=== PATIENT | male | born 1980 | race Caucasian/White ===

== ENCOUNTER 2017-07-18 16:11 | Emergency (ER) | payer OTHER ==
[~2017-07-18] VITALS: Ht 175.3 cm; Wt 95.2 kg
[2017-07-18 16:17] VITALS: BP 116/59; PULSE 58; RESP 16; TEMP 98.1; O2SAT 99
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
[2017-07-18] MEDS ORDERED: FLUO20CA12 PO (16:37)
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
== END 2017-07-18 18:36 | disposition home or self-care (01) ==
LOC: NEPK 16:11
DX: S83.92XA Sprain of unspecified site of left knee, initial encounter (principal); V86.59XA Driver of other special all-terrain or other off-road motor vehicle injured in nontraffic accident, initial encounter
CPT/HCPCS: 73590; 99283; E0113; L1830

== ENCOUNTER → 2017-09-25 | Day surgery (SDC) | payer OTHER ==
[~2017-09-25] MED LIST: BUPIVACAINE HCL PF 0.75% 30 ML VIAL ONE; FLUO20CA12 PO; LACTATED RINGER'S 1000 ML INJ 1,000 ML ONE; LIDOCAINE 1.5%/EPINEPHrine 1:200,000 PF SOLN 30 ML AMP ONE; MIDAZOLAM HCL 5 MG/ML VIAL (1 ML) ONE; ONDANSETRON HCL 4 MG/2 ML VIAL IV PUSH ONE; PROPOFOL 500 MG/50 ML BTL IV ONE; SODIUM CHLORIDE 0.9% INJ 10 ML ONE; ceFAZolin 2 GM PREMIX 50 ML ONE; ceFAZolin INJ 1,000 MG VIAL ONE
--- NOTE | 2017-09-26 01:12 | MP ---
cc: PIOTR BURCIAGA DATE OF SURGERY 09/25/2017 PREOPERATIVE DIAGNOSIS Left knee anterior cruciate ligament tear, left knee lateral meniscus tear. POSTOPERATIVE DIAGNOSES Left knee anterior cruciate ligament tear, left knee lateral meniscus tear. PROCEDURE Left knee arthroscopic assisted anterior cruciate ligament allograft reconstruction, left knee arthroscopic partial lateral meniscectomy. SURGEON Dr. Piotr Burciaga. POLYTECHNIC TEACHER EDMOND Haskins. ANESTHESIA General with a femoral nerve block. ESTIMATED BLOOD LOSS 50 cc. TOURNIQUET TIME 0 minutes. COMPLICATIONS None. IMPLANTS USED Arthrex. DESCRIPTION This patient is a 36-year-old male who injured his left knee. He has had persistence of pain and instability in regards to his condition, failed conservative. Clinical exam as well as MRI confirmed the above-named findings. The patient counseled as to the risks, benefits, alternatives to the above named proposed surgical procedure. He did wish to proceed with surgery. PROCEDURE IN DETAIL A written consent was obtained. The patient was identified by name, taken to the operating room, placed supine on the OR table. General anesthesia was administered as well as 2 grams of IV Ancef. He did receive preoperative femoral nerve block. The left thigh carefully placed in well-padded leg loco. The left lower extremity prepped and draped using isopropyl alcohol, Hibiclens solution and DuraPrep solution. After time-out was performed a standard medial and lateral parapatellar arthroscopic portal was established. The patellofemoral joint revealed minimal grade 2 chondromalacia, medical compartment was relatively free of meniscal pathology, chondromalacia. The intercondylar notch revealed a complete disruption of anterior cruciate ligament. The lateral compartment revealed a complex tear of the posterior horn lateral meniscus as well as some grade 2 chondromalacia changes lateral femoral condyle. An arthroscopic biter followed by an arthroscopic shaver was introduced into the lateral compartment to perform a partial lateral meniscectomy. The meniscal rim was probed and noted to be stable. The shaver was used to perform a debridement of torn anterior cruciate ligament stump. An arthroscopic bur was used to perform a notchplasty. The posterior wall was well-visualized. An Arthrex retrocutting tibia guide was centered within the footprint [place] ACL and a guide pin was used to capture the 10 mm drill bit. The tibial tunnel was then retro cut 10 mm in diameter. The shaver was used to clean soft tissue and bone debris from within the knee joint. An Arthrex 7-mm [id number] medial portal femoral guide was then placed from the medial portal of the lateral femoral condyle within the [place] origin of the ACL. The knee was hyperflexed 120 degrees and a guide pin was drilled exiting superolateral aspect of the knee. Subsequently, a low-profile cannulated 10 mm drill was then drilled to a depth of 25 mm. The shaver was again used to clean soft tissue and bone debris from within the knee joint. The Beath needle was then used to shuttle #2 fiber link suture ___ initially from the medial portal and then subsequently from the tibial tunnel exiting the femoral tunnel. On the back table the geothermal hvac technician tibialis tendon allograft was thawed in antibiotic solution. Mayank Rosario, physician assistant engineer certified, was instrumental in fashioning the graft. ___ folded a diameter of 10 mm, #2 FiberWire whipstitch was placed in the proximal, distal portion of the graft. The graft pretensioned on the back table. A tight rope anchor was then placed over the midportion of the graft. The sutures from the tightrope was placed through the eyelet of the fiber link suture and pulled from the tibial tunnel exiting the femoral tunnel. The tightrope flip flip anchor was then pulled distal to the lateral cortex of the femur and then secured. This was tested manually. The graft then pulled and fully seated within the femoral tunnel. The graft was taken through a full range of motion and no evidence of pistoning or impingement. With the leg held in near full extension a guidewire was placed along the anterior border of the graft and an Arthrex 9 x 28 mm bioabsorbable Delta screw was used for interference fixation of the tibial side. An intraoperative Lauren exam was performed which was negative. The graft exiting the tibial tunnel was removed with a 10 blade scalpel. The tibial incisions closed with 3-0 Vicryl suture. Skin incisions were closed with 3-0 Prolene. Sterile dressing applied. The patient tolerated the procedure with no intraoperative complications noted. Mayank Rosario, physician assistant engineer certified, was present during the entire procedure to include patient positioning, the procedure itself. The medical necessity of physician assistant engineer was indicated in this case due to the complexity of the procedure. He assisted with appropriate manipulation of the leg and also manipulation of the camera. He assisted with fashioning and preparation of the graft and also drilling of tunnels, implantation of the graft and internal fixation devices for purpose of reconstruction. MD JESSIE Garrett/SABINE /4:33 PM /12:45 AM
== END | disposition home or self-care (01) ==
LOC: ESDC 12:46
PROVIDERS: ATTEND Orthopaedic Surgery Sports Medicine
DX: S83.512A Sprain of anterior cruciate ligament of left knee, initial encounter (principal); S83.272A Complex tear of lateral meniscus, current injury, left knee, initial encounter; M94.262 Chondromalacia, left knee
CPT/HCPCS: 01400; 01991; 29881; 29888; 64447; C1713; J0690; J2250; J2405; J7120

== ENCOUNTER 2018-11-11 12:42 | Inpatient (IN) ==
[2018-11-11] MEDS ORDERED: Sod Chloride 0.9% Inj 1,000 ML IV.SIG ONE (12:55)
--- NOTE | 2018-11-11 13:04 | ED ---
HPI General Chief Complaint: Psychiatric Symptoms Stated Complaint: Poss OD/Psych Eval Time Seen by Provider: 11/11/18 12:46 Source: EMS and police Mode of arrival: EMS Limitations: other History of Present Illness HPI Narrative: The patient is a 38-year-old male who presents to the emergency department via EMS with police after the patient was found on the bathroom floor. The patient apparently texted a friend/girlfriend earlier today that he was going to commit suicide. Patient apparently was found on the bathroom floor with needles present and heroin and crack cocaine on scene. The patient apparently was altered upon EMS arrival and was administered Narcan 4 mg intranasally by EMS and the patient awakened with subsequent nausea and vomiting. Upon arrival the patient repetitively states "I want water ", however , refuses answer any questions. The patient was placed under a [place] act by police. The patient would not answer questions in regards to overdose, timing of overdose, what medications were present, and whether the overdose was intravenous or oral. The patient will also not answer questions regards to depression, suicidal ideation, homicidal ideation, hallucination the patient is uncooperative upon arrival. No further information is obtainable from the patient. MD complaint: Reports intentional overdose Onset (ago): unknown Timing confirmed by: other Intent: unwilling to say How Overdose Was Discovered: called family/friend Treatments Prior to Arrival: narcan Related Data Home Medications Medication Instructions Recorded Confirmed Unable to Obtain Home Meds 11/11/18 11/11/18 Allergies Allergy/AdvReac Type Severity Reaction Status Date / Time No Known Allergies Allergy Uncoded 07/18/17 16:37 Review of Systems ROS Unobtainable ROS Unobtainable: other (The patient refuses to answer any questions) ROS: all other systems reviewed are negative [facility] Social History Social History Substance History: Active Abuse Smoking Status: Refused to answer How Often Do You Have a Drink Containing Alcohol: Unable to Obtain Exam Narrative Exam Narrative: GENERAL: Awake, alert, shivering 38-year-old male who appears his stated age and is in no acute respiratory distress. SKIN: Focused skin assessment warm/dry. Multiple tattoos noted. HEAD: Atraumatic. Normocephalic. EYES: Pupils equal and round. 1-2 mm bilateral. ENT: No nasal bleeding or discharge. Mucous membranes pink and moist. NECK: Trachea midline. No JVD. CARDIOVASCULAR: Regular rate and rhythm. No murmur appreciated. Heart rate in the 90s. RESPIRATORY: No accessory muscle use. Clear to auscultation. Breath sounds equal bilaterally. GASTROINTESTINAL: Abdomen soft, non-tender, nondistended. MUSCULOSKELETAL: No obvious deformities. No clubbing. No cyanosis. No edema. Patient appears to have injection vela of the extensor surface of the hands bilaterally. NEUROLOGICAL: Awake and alert. No obvious cranial nerve deficits. Motor grossly within normal limits. Normal speech. PSYCHIATRIC: Refuses to answer questions. Course Initial Documented Vital Signs Temperature 94.0 F L 11/11/18 12:50 Pulse Rate 92 H 11/11/18 12:50 Respiratory Rate 21 11/11/18 12:50 Blood Pressure 182/66 H 11/11/18 12:50 Pulse Oximetry 95 11/11/18 12:50 Last Documented Vital Signs Temperature 98.4 F 11/11/18 14:07 Pulse Rate 92 H 11/11/18 12:50 Respiratory Rate 21 11/11/18 12:50 Blood Pressure 182/66 H 11/11/18 12:50 Pulse Oximetry 95 11/11/18 12:50 Sign Out Sign Out Data: Patient Sign Out occurred on 11/11/18 at 15:24. Patient's care was discussed, and care was transferred from Lg Gould MD to Ankit Quinn. Sign Out Comment: [place] act for intentional overdose with heroin and cocaine. If laboratory evaluation is unremarkable and the patient is not hypoxic at 4 hours, patient is medically cleared to be evaluated by psychiatry. Last updated by Lg Gould MD at 11/11/18 15:02 Post-Handoff Eval: CBC shows 13,000 leukocytosis with 86% neutrophilia normal any no evidence of anemia normal platelet count Normal coagulation profile Electrolytes are relatively within normal limits potassium of 5.3 is not elevated enough to require any type of intervention at this point Creatinine 1.6 with a GFR of 49 Hypocalcemia mild 7.6 Normal magnesium Elevated AST ALT of 238 and 139 respectively but with normal bilirubin and alkaline phosphatase Total CPK 6458 Negative Tylenol negative alcohol negative salicylates Chest x-ray read by radiologist as the lungs are clear The patient will be provided with 2 liter of IV fluids, as well as provided with calcium gluconate IV and admitted to medicine for further management. Medical Decision Making MDM Narrative Medical decision making narrative: IV was established, labs are drawn and sent, and the patient was placed on cardiac telemetry monitoring and continuous pulse oximetry monitoring. EKG was ordered and interpreted. The patient was hypothermic at 94.0, was placed on warm blankets. Acetaminophen level and salicylate level were sent to lab. Chest x-ray was obtained to rule out aspiration. Psychiatric evaluation was ordered. Medical Screen Exam Complete: Yes Emergency Medical Condition: Yes Lab Data Result diagrams: 11/11/18 14:00 11/11/18 14:00 Lab Results 11/11/18 11/11/18 11/11/18 Range/Units 14:00 14:00 14:00 WBC 13.0 H (4.0-11.0) th/mm3 RBC 4.37 L (4.50-5.90) mil/mm3 Hgb 15.5 (13.0-17.0) gm/dL Hct 43.4 (39.0-51.0) % MCV 99.2 (80.0-100.0) fL MCH 35.4 H (27.0-34.0) pg MCHC 35.7 (32.0-36.0) % RDW 12.7 (11.6-17.2) % Plt Count 142 L (150-450) th/mm3 MPV 8.6 (7.0-11.0) fL Neut % (Auto) 85.8 H (16.0-70.0) % Lymph % (Auto) 3.6 L (9.0-44.0) % [place] % (Auto) 10.5 H (0.0-8.0) % Eos % (Auto) 0.0 (0.0-4.0) % Baso % (Auto) 0.1 (0.0-2.0) % Neut # (Auto) 11.1 H (1.8-7.7) th/mm3 Lymph # (Auto) 0.5 L (1.0-4.8) th/mm3 [place] # (Auto) 1.4 H (0.0-0.9) th/mm3 Eos # (Auto) 0.0 (0.0-0.4) th/mm3 Baso # (Auto) 0.0 (0.0-0.2) th/mm3 WBC Differential . Differential Comment Auto diff final PT 12.3 H (9.8-11.6) sec INR 1.2 Ratio Sodium 138 (136-145) meq/L Potassium 5.3 H (3.5-5.1) meq/L Chloride 98 (98-107) meq/L Carbon Dioxide 26.9 (21.0-32.0) meq/L Anion Gap 13 (5-15) meq/L BUN 36 H (7-18) mg/dL Creatinine 1.60 H (0.60-1.30) mg/dL Estimated GFR 49 L (>89) mL/min Random Glucose 137 H (74-106) mg/dL Calcium 7.4 L* (8.5-10.1) mg/dL Calcium Adj for Albumin 7.6 L (8.5-10.1) mg/dL Magnesium (1.5-2.5) mg/dL Total Bilirubin 0.4 (0.2-1.0) mg/dL AST 238 H (15-37) U/L ALT 139 H (12-78) U/L Alkaline Phosphatase 74 (45-117) U/L Total Creatine Kinase 6458 H (39-308) U/L CK-MB (CK-2) 38.9 H (0.5-3.6) ng/mL CK-MB (CK-2) % 0.6 (0.0-4.0) % Total Protein 6.9 (6.4-8.2) g/dL Albumin 3.7 (3.4-5.0) g/dL Salicylates (2.8-20.0) mg/dL Acetaminophen Less than 2.0 L (10.0-30.0) mcg/mL Serum Alcohol Less than 3 (0-5) mg/dL 11/11/18 11/11/18 Range/Units 14:00 14:00 WBC (4.0-11.0) th/mm3 RBC (4.50-5.90) mil/mm3 Hgb (13.0-17.0) gm/dL Hct (39.0-51.0) % MCV (80.0-100.0) fL MCH (27.0-34.0) pg MCHC (32.0-36.0) % RDW (11.6-17.2) % Plt Count (150-450) th/mm3 MPV (7.0-11.0) fL Neut % (Auto) (16.0-70.0) % Lymph % (Auto) (9.0-44.0) % [place] % (Auto) (0.0-8.0) % Eos % (Auto) (0.0-4.0) % Baso % (Auto) (0.0-2.0) % Neut # (Auto) (1.8-7.7) th/mm3 Lymph # (Auto) (1.0-4.8) th/mm3 [place] # (Auto) (0.0-0.9) th/mm3 Eos # (Auto) (0.0-0.4) th/mm3 Baso # (Auto) (0.0-0.2) th/mm3 WBC Differential Differential Comment PT (9.8-11.6) sec INR Ratio Sodium (136-145) meq/L Potassium (3.5-5.1) meq/L Chloride (98-107) meq/L Carbon Dioxide (21.0-32.0) meq/L Anion Gap (5-15) meq/L BUN (7-18) mg/dL Creatinine (0.60-1.30) mg/dL Estimated GFR (>89) mL/min Random Glucose (74-106) mg/dL Calcium (8.5-10.1) mg/dL Calcium Adj for Albumin (8.5-10.1) mg/dL Magnesium 2.3 (1.5-2.5) mg/dL Total Bilirubin (0.2-1.0) mg/dL AST (15-37) U/L ALT (12-78) U/L Alkaline Phosphatase (45-117) U/L Total Creatine Kinase (39-308) U/L CK-MB (CK-2) (0.5-3.6) ng/mL CK-MB (CK-2) % (0.0-4.0) % Total Protein (6.4-8.2) g/dL Albumin (3.4-5.0) g/dL Salicylates 3.7 (2.8-20.0) mg/dL Acetaminophen (10.0-30.0) mcg/mL Serum Alcohol (0-5) mg/dL Imaging Data Radiologist's impression: Chest X-Ray 11/11/18 12:55 CONCLUSION: The lungs are clear. ECG Data EKG Prior to Arrival: No Attestation: I personally reviewed and interpreted this ECG as follows: Interpretation: EKG reveals normal sinus rhythm with a rate 80. Nonspecific T wave changes. Wavy baseline. Discharge Plan Discharge Disposition Patient Disposition: ED Admit(ED Internal Use Only) Discharge Condition Condition: Stable Discharge Details Diagnosis: Suicidal ideation, Rhabdomyolysis, Acute renal failure Physicians Team ED Provider: Ankit Quinn Primary Care Provider: UNKNOWN, Rxs /Orders / Referrals /Forms Prescriptions: No Action Unable to Obtain Home Meds RF: 0 Discharge Interventions Interventions: Vital Signs Last Done: 11/11/18 14:07 Status ED Status: With Doctor
--- NOTE | 2018-11-11 14:00 | XR ---
EXAM DATE: 11/11/2018 1:53 PM EST AGE/SEX: 38 years / Male INDICATIONS: Short of breath. CLINICAL DATA: This is the patient's initial encounter. Patient reports that signs and symptoms have been present for 1 day and indicates a pain score of Nonresponsive. MEDICAL/SURGICAL HISTORY: Non-responsive. Non-responsive. COMPARISON: No prior exams available for comparison. FINDINGS: A single AP view of the chest demonstrates the lungs to be symmetrically aerated without evidence of mass, infiltrate or effusion. The cardiomediastinal contours are unremarkable. Osseous structures a re intact. CONCLUSION: The lungs are clear. Electronically signed by: Sanchez Farley MD Board Certified Radiologist 11/11/2018 1:58 PM EST
--- NOTE | 2018-11-11 15:05 | ECG ---
Date Performed: 11/11/2018 Time Performed: 13:16:23 PTAGE: 38 years EKG: Baseline artifact present Sinus rhythm POSSIBLE RIGHT VENTRICULAR CONDUCTION DELAY NONSPECIFIC T-WAVE ABNORMALITY BORDERLINE ECG Compared t o prior electrocardiogram, Nonspecific ST depressions have resolved. PREVIOUS TRACING : 12/11/1998 03.08 DOCTOR: Levi Malagon Interpretating Date/Time 11/11/2018 15:05:18
[2018-11-11 15:11] LABS: Baso % (Auto) 0.1 % (0.0-2.0); Hematocrit 43.4 % (39.0-51.0); Hemoglobin 15.5 gm/dL (13.0-17.0); Lymph # (Auto) 0.5 th/mm3 (1.0-4.8); Lymph % (Auto) 3.6 % (9.0-44.0); Mean Corpuscular HGB Conc 35.7 % (32.0-36.0); Mean Corpuscular Hemoglobin 35.4 pg (27.0-34.0); Mean Corpuscular Volume 99.2 fL (80.0-100.0); Mean Platelet Volume 8.6 fL (7.0-11.0); Mono # (Auto) 1.4 th/mm3 (0.0-0.9); Mono % (Auto) 10.5 % (0.0-8.0); Neut # (Auto) 11.1 th/mm3 (1.8-7.7); Neut % (Auto) 85.8 % (16.0-70.0); Platelet Count 142 th/mm3 (150-450); Red Blood Count 4.37 mil/mm3 (4.50-5.90); Red Cell Distribution Width 12.7 % (11.6-17.2)
[2018-11-11 15:32] LABS: Albumin 3.7 g/dL (3.4-5.0); Anion Gap 13 meq/L (5-15); Aspartate Aminotransferase 238 U/L (15-37); Blood Urea Nitrogen 36 mg/dL (7-18); Calcium 7.4 mg/dL (8.5-10.1); Carbon Dioxide 26.9 meq/L (21.0-32.0); Chloride 98 meq/L (98-107); Glomerular Filtration Rate 49 mL/min (>89); Glucose,Random 137 mg/dL (74-106); Potassium 5.3 meq/L (3.5-5.1); Sodium 138 meq/L (136-145)
[2018-11-11 15:36] LABS: INR 1.2 Ratio; Prothrombin Time 12.3 sec (9.8-11.6)
[2018-11-11 15:57] LABS: Alanine Aminotransferase 139 U/L (12-78); Alkaline Phosphatase 74 U/L (45-117); Creatine Kinase 6458 U/L (39-308); Total Protein 6.9 g/dL (6.4-8.2)
[2018-11-11 16:16] LABS: CKMB Percent 0.6 % (0.0-4.0); Creatine Kinase MB 38.9 ng/mL (0.5-3.6)
[2018-11-11] MEDS ORDERED: Calcium Gluconate Inj 1 GM in Dextrose 5% in Water Inj 100 ML IV.SIG ONE ×2 (16:31)
[2018-11-11] MEDS ORDERED: Acetaminophen 325 MG Tablet PO PRN (16:56)
--- NOTE | 2018-11-11 17:05 | P.HPIM ---
History of Present Illness Primary Care Physician: UNKNOWN Chief Complaint: Suicidal History of Present Illness: Mr. Saez is a 38-year-old male. He is brought in by the police today after being found on his bathroom floor. Patient reportedly texted his girlfriend earlier today informing her that he was going to commit suicide. He was found with needles on his bathroom floor unconscious with heroin and crack cocaine on the scene. Narcan was administered in the field and the patient became responsive and expressed thirst. Patient has been placed under Sahu act by the police. Thus far he has not been cooperative with answering questions. He will not provide an interview with me. Review of Systems ROS Unobtainable: unobtainable due to mental condition and unobtainable due to mental status PMFSH Social History Social History Substance History: Active Abuse Smoking Status: Refused to answer How Often Do You Have a Drink Containing Alcohol: Unable to Obtain Immunization History Tetanus Immunization: Unable to Assess Medications and Allergies Allergies Allergy/AdvReac Type Severity Reaction Status Date / Time No Known Allergies Allergy Uncoded 07/18/17 16:37 Home Medications Medication Instructions Recorded Confirmed Type Unable to Obtain Home Meds 11/11/18 11/11/18 History Active Medications: Active Medications Acetaminophen (Tylenol) 650 mg PO Q4H PRN PRN Reason: Temp > 100.4 Al Hydroxide/Mg Hydroxide (Milk Of Loc Liq) 30 ml PO Q12H PRN PRN Reason: Mild Constipation Sodium Chloride (Ns Inj) 1,000 mls @ 2,000 mls/hr IV.SIG Q30M [facility] Stop: 11/11/18 17:44 Calcium Gluconate 1 gm/ (Dextrose) 110 mls @ 110 mls/hr IV.SIG ONCE ONE Stop: 11/11/18 17:30 Sodium Chloride (Ns Inj) 1,000 mls @ 100 mls/hr IV.CONT .Q10H [facility] Ondansetron HCl (Zofran Inj) 4 mg IV.PUSH Q6H PRN PRN Reason: NAUSEA OR VOMITING Sodium Chloride (Ns Flush) 2 ml IV.FLUSH PRN PRN PRN Reason: FLUSH AFTER USING IV ACCESS Sodium Chloride (Ns Flush) 2 ml IV.FLUSH BID KRISTYN Sodium Chloride (Ns Flush) 2 ml IV.FLUSH PRN PRN PRN Reason: FLUSH AFTER USING IV ACCESS Physical Exam Vital signs: Vital Signs 11/11/18 12:50 11/11/18 14:07 Temperature 94.0 F L 98.4 F Pulse Rate 92 H Respiratory Rate 21 Blood Pressure 182/66 H Pulse Oximetry 95 Intake & Output 11/10/18 11/11/18 11/11/18 18:59 06:59 18:59 Intake Total 1000 / 1000 Balance 1000 / 1000 Weight 74.843 kg Intake: IV 1000 / 1000 NS Inj 1,000 ML @ Wide Open IV. 1000 / 1000 SIG BOLUS ONE Rx#:[id number] Narrative: GENERAL: NAD, A&Ox3 HEAD: Normocephalic. NECK: Supple, trachea midline. No lymphadenopathy. EYES: No scleral icterus. No injection or drainage. CARDIOVASCULAR: Regular rate and rhythm without murmurs, gallops, or rubs. RESPIRATORY: Breath sounds equal bilaterally. No accessory muscle use. GASTROINTESTINAL: Abdomen soft, non-tender, nondistended. MUSCULOSKELETAL: No cyanosis, or edema. SKIN: Warm and dry. NEURO: No focal neurological deficits. Results Labs CBC & Chem 7: 11/11/18 14:00 11/11/18 14:00 Imaging Impressions Chest X-Ray 11/11/18 12:55 CONCLUSION: The lungs are clear. Caprini VTE Risk Assessment Caprini VTE Risk Assessment: No/Low Risk (score <= 1) Caprini Risk Assessment Model: Point Value = 1 Point Value = 2 Point Value = 3 Point Value = 5 Age 41-60 Minor surgery BMI > 25 kg/m2 Swollen legs Varicose veins or History of unexplained or recurrent spontaneous Oral contraceptives or hormone replacement Sepsis (< 1 month) Serious lung disease, including pneumonia (< 1 month) Abnormal pulmonary function Acute myocardial infarction Congestive heart failure (< 1 month) History of inflammatory bowel disease Medical patient at bed rest Age 61-74 Arthroscopic surgery Major open surgery (> 45 min) Laparoscopic surgery (> 45 min) Malignancy Confined to bed (> 72 hours) Immobilizing plaster cast Central venous access Age >= 75 History of VTE Family history of VTE Factor V Leiden Prothrombin [id number] Lupus anticoagulant Anticardiolipin antibodies Elevated serum homocysteine Heparin-induced thrombocytopenia Other congenital or acquired thrombophilia Stroke (< 1 month) Elective arthroplasty Hip, pelvis, or leg fracture Acute spinal cord injury (< 1 month) Prophylaxis Regimen: Total Risk Factor Score Risk Level Prophylaxis Regimen 0-1 Low Early ambulation 2 Moderate Order ONE of the following: *Sequential Compression Device (SCD) *Heparin 5000 units SQ BID 3-4 Higher Order ONE of the following medications: *Heparin 5000 units SQ TID *Enoxaparin/Lovenox 40 mg SQ daily (WT < 150 kg, CrCl > 30 mL/min) *Enoxaparin/Lovenox 30 mg SQ daily (WT < 150 kg, CrCl > 10-29 mL/min) *Enoxaparin/Lovenox 30 mg SQ BID (WT < 150 kg, CrCl > 30 mL/min) AND/OR *Sequential Compression Device (SCD) 5 or more Highest Order ONE of the following medications: *Heparin 5000 units SQ TID (Preferred with Epidurals) *Enoxaparin/Lovenox 40 mg SQ daily (WT < 150 kg, CrCl > 30 mL/min) *Enoxaparin/Lovenox 30 mg SQ daily (WT < 150 kg, CrCl > 10-29 mL/min) *Enoxaparin/Lovenox 30 mg SQ BID (WT < 150 kg, CrCl > 30 mL/min) AND *Sequential Compression Device (SCD) Assessment and Plan Plan 38-year-old male admitted secondary to acute kidney injury, rhabdomyolysis, and heroin/cocaine overdose. Patient under Sahu act for suicidal ideations and attempt. Acute kidney injury Rhabdomyolysis Hyperkalemia Etiology may be related to dehydration from lack of fluid intake when patient was abusing drugs IV hydration Repeat labs in a.m. Polysubstance abuse Transaminitis Patient counseled to avoid abusing drugs Follow LFTs Suicidal ideations Suicide attempt Patient under Sahu act Psychiatry consulted Patient to be supervised DVT prophylaxis SCDs
[2018-11-11] MEDS: Sod Chloride 0.9% Inj 1,000 ML IV.SIG SCH ×2 (18:50→18:56)
[2018-11-11] MEDS: Sod Chloride 0.9% Inj 1,000 ML IV.CONT SCH (22:59)
[2018-11-12 02:08] LABS: Amphetamine Screen,Urine Neg (Neg); Barbiturate Screen,Urine Neg (Neg); Cannabinoid Screen,Urine Neg (Neg); Cocaine Screen,Urine Pos (Neg)
[2018-11-12 02:14] LABS: Opiate Screen,Urine Pos (Neg)
[2018-11-12] MEDS: Sod Chloride 0.9% Inj 1,000 ML IV.CONT SCH ×3 (02:19→20:49)
[2018-11-12 05:03] LABS: Baso % (Auto) 0.2 % (0.0-2.0); Hematocrit 40.2 % (39.0-51.0); Hemoglobin 14.1 gm/dL (13.0-17.0); Lymph # (Auto) 1.3 th/mm3 (1.0-4.8); Lymph % (Auto) 12.7 % (9.0-44.0); Mean Corpuscular Hemoglobin 34.6 pg (27.0-34.0); Mean Corpuscular Volume 98.8 fL (80.0-100.0); Mean Platelet Volume 8.7 fL (7.0-11.0); Mono # (Auto) 0.7 th/mm3 (0.0-0.9); Mono % (Auto) 7.3 % (0.0-8.0); Neut # (Auto) 8.2 th/mm3 (1.8-7.7); Neut % (Auto) 79.8 % (16.0-70.0); Platelet Count 129 th/mm3 (150-450); Red Blood Count 4.07 mil/mm3 (4.50-5.90); Red Cell Distribution Width 12.6 % (11.6-17.2); White Blood Count 10.3 th/mm3 (4.0-11.0)
[2018-11-12 05:55] LABS: Alanine Aminotransferase 167 U/L (12-78); Albumin 3.1 g/dL (3.4-5.0); Alkaline Phosphatase 55 U/L (45-117); Anion Gap 8 meq/L (5-15); Aspartate Aminotransferase 485 U/L (15-37); Blood Urea Nitrogen 27 mg/dL (7-18); Calcium 7.6 mg/dL (8.5-10.1); Carbon Dioxide 26.7 meq/L (21.0-32.0); Chloride 107 meq/L (98-107); Creatine Kinase 13878 U/L (39-308); Glomerular Filtration Rate 80 mL/min (>89); Glucose,Random 86 mg/dL (74-106); Potassium 4.6 meq/L (3.5-5.1); Sodium 142 meq/L (136-145); Total Protein 5.8 g/dL (6.4-8.2)
[2018-11-12 06:23] LABS: CKMB Percent 0.6 % (0.0-4.0); Creatine Kinase MB 84.3 ng/mL (0.5-3.6)
--- NOTE | 2018-11-12 11:20 | P.CONPSY ---
Provisional Diagnosis Admission Date: November 12, 2018 09:18 [place] I.: Adjustment disorder with depressed mood vs major depressive disorder vs substance-induced mood disorder, polysubstance dependence including alcohol, cocaine, opiate History of Present Illness Service: ER Primary Care Provider: UNKNOWN Chief Complaint: Suicidal History of Present Illness: The patient is a 38-year-old man, domiciled in [place] alone, , father of 2 kids, unemployed at the moment, with a psychiatric history of OCD, FLORENTINO, polysubstance dependence including cocaine, alcohol and heroin, no psychiatric hospitalizations, he is not in psychotropics, one suicidal attempt at the age of [age] years old by overdosing, no significant medical history, who was brought in by the police today after being found on his bathroom floor. Patient reportedly texted his girlfriend earlier today informing her that he was going to commit suicide. He was found with needles on his bathroom floor unconscious with heroin and crack cocaine on the scene. Narcan was administered in the field and the patient became responsive and expressed thirst. Patient has been placed under Sahu act by the police. Thus far he has not been cooperative with answering questions. He was initially no provide any information interview with ER doctors. He was placed in one-to-one for safety. Consulted to psychiatry to address suicidal attempt. Chart reviewed. On my psychiatric evaluation today the patient continues to be oppositional, quite irritable, internally preoccupied. The patient says that he is very upset that he is still alive. He says that he feels that his privacy is violated I should be now, and he is very upset because the police arrived in his house and did not allow him to . The patient refuses to elaborate about emotions and feelings behind his desire to . He does tell me that is done with his life and this is what everybody wants. He tells me that he used to be a heroine, cocaine and alcohol user in the past, he was sober for many months, but he has relapse using these substances in the last weeks due to the stress of her life. He recently lost his job. He is also having permanent problem with his ex-. Refuses to cooperate with cognitive questions. Unable to contract for safety in the hospital. PPHx: OCD, FLORENTINO, no previous psychiatric hospitalizations, one suicidal attempt at the age of 18 by overdose PMHx: No medical history Family Hx: No family psychiatric history Substance Hx: Patient reports recent use of heroine, cocaine, alcohol, he claims that he has just recently relapsed weeks ago after years without using. Social Hx: The patient was born and raised in [place], he is , domiciled in [place] alone, , father of 2 kids, 15, 13, unemployed, his highest level of education is some color Review of Systems All other systems reviewed negative except as stated in HPI PMFSH - History History Provided By: Patient, Pool Servicer / EMT, Law Enforcement - Family History Family History: Family History (Last Reviewed 11/11/18 @ 13:02 by Lg Gould MD) Other Osteoarthritis - Tobacco History Second Hand Smoke Exposure: Yes Smoking Status: Refused to answer - Alcohol History How Often Do You Have a Drink Containing Alcohol: Unable to Obtain - Substance Use History Substance History: Active Abuse - Immunization History Tetanus Immunization: Unable to Assess Medications and Allergies Active Medications: Active Medications Acetaminophen (Tylenol) 650 mg PO Q4H PRN PRN Reason: Temp > 100.4 Al Hydroxide/Mg Hydroxide (Milk Of Loc Liq) 30 ml PO Q12H PRN PRN Reason: Mild Constipation Sodium Chloride (Ns Inj) 1,000 mls @ 100 mls/hr IV.CONT .Q10H [facility] Last Infusion: 11/12/18 07:29 Dose: 100 mls/hr Ondansetron HCl (Zofran Inj) 4 mg IV.PUSH Q6H PRN PRN Reason: NAUSEA OR VOMITING Sodium Chloride (Ns Flush) 2 ml IV.FLUSH BID [facility] Last Admin: 11/12/18 08:35 Dose: Not Given Sodium Chloride (Ns Flush) 2 ml IV.FLUSH PRN PRN PRN Reason: FLUSH AFTER USING IV ACCESS Allergies Allergy/AdvReac Type Severity Reaction Status Date / Time No Known Allergies Allergy Uncoded 07/18/17 16:37 Home Medications Medication Instructions Recorded Confirmed Type Unable to Obtain Home Meds 11/11/18 11/11/18 History Exam Vital signs: Vital Signs 11/11/18 12:50 11/11/18 14:07 11/11/18 18:37 Temperature 94.0 F L 98.4 F Pulse Rate 92 H 82 Respiratory Rate 21 13 Blood Pressure 182/66 H 105/61 Pulse Oximetry 95 94 L 11/11/18 19:06 11/11/18 20:00 11/11/18 21:36 Temperature 98.8 F Pulse Rate 91 H Respiratory Rate 18 16 Blood Pressure 84/47 L Pulse Oximetry 93 L 11/11/18 23:40 11/12/18 04:00 11/12/18 08:51 Temperature 99.2 F 98.9 F 98.8 F Pulse Rate 58 L 98 H 100 H Respiratory Rate 18 16 14 Blood Pressure 93/58 L 84/39 L 103/53 L Pulse Oximetry 92 L 93 L 90 L Intake & Output 11/11/18 11/12/18 11/12/18 18:59 06:59 18:59 Intake Total 1999 1110 / 1110 Output Total 950 / 950 Balance 1999 160 / 160 Weight 74.843 kg 74.6 kg Intake: IV 1999 1110 / 1110 Calcium Gluconate Inj 1 GM In 110 / 110 D5W Inj 100 ML @ 110 mls/hr IV. SIG ONCE ONE Rx#:[id number] NS Inj 1,000 ML @ 2000 mls/hr 1999 1000 / 1000 IV.SIG Q30M KRISTYN Rx#:[id number] Output: Urine 950 / 950 Other: Weight On Admission 74.6 kg Narrative: No tremors, no EPS, no psychomotor agitation or retardation, no withdrawal symptoms, - Constitutional moderate distress - Routine HEENT Exam Head: Present: normocephalic, atraumatic Eye: Present: EOMI ENT: Present: mucous membranes moist Mental Status Examination Appearance: Appropriate Consciousness: Alert Orientation: x4 Motor Activity: Normal gait Speech: Unremarkable Language: Adequate Fund of Knowledge: Adequate Attention and Concentration: Adequate Memory: Unremarkable Mood: Angry Affect: Irritable, Sad Thought Process & Associations: Intact Thought Content: Appropriate Hallucination Type: None Suicidal Ideation: Yes Suicidal Plan: Yes Suicidal Intention: No Homicidal Ideation: No Homicidal Plan: No Homicidal Intention: No Insight: Poor Judgment: Poor Assessment and Plan - Assessment (1) Adjustment disorder Code(s): F43.20 - Adjustment disorder, unspecified Status: Acute (2) Polysubstance dependence Code(s): F19.20 - Other psychoactive substance dependence, uncomplicated Status: Acute - Plan Plan: On psychiatric evaluation the patient is irritable, oppositional, resistant, guarded, refusing to provide information about the recent for his suicidal attempt by overdosing. But stating that he regrets to be alive and he is upset because his suicidal attempt was aborted by the police. Patient states that I should be , that is what everybody wants". He seems to be quite distressed and emotionally disturbed. He reports that he has a psychiatric history of FLORENTINO , OCD, but no previous psychiatric hospitalizations, one previous suicide attempt at the age of 18 by overdosing, polysubstance dependence including alcohol, cocaine and heroin. Patient is unable to contract for safety. He continues to have suicidal ideas. The patient needs psychiatric admission for for stabilization and safety. Continue one-to-one the medical floor for safety. Will start CIWA for potential alcohol withdrawal. Transfer to psychiatry once medically stable. Justification for Continued Inpatient Stay: For psychiatric admission for stabilization and safety. (1) Adjustment disorder Qualifiers: Adjustment disorder type: with depressed mood Qualified Code(s): F43.21 - Adjustment disorder with depressed mood
--- NOTE | 2018-11-12 11:38 | P.PNIM ---
Subjective Interval history: No acute distress today. Patient sleeping most of the day. He is able to wake up and has been cooperating today. He complains of no pain. Creatine kinase levels have increased, not yet stable for discharge. Physical Exam Vital signs: Vital Signs 11/11/18 12:50 11/11/18 14:07 11/11/18 18:37 Temperature 94.0 F L 98.4 F Pulse Rate 92 H 82 Respiratory Rate 21 13 Blood Pressure 182/66 H 105/61 Pulse Oximetry 95 94 L 11/11/18 19:06 11/11/18 20:00 11/11/18 21:36 Temperature 98.8 F Pulse Rate 91 H Respiratory Rate 18 16 Blood Pressure 84/47 L Pulse Oximetry 93 L 11/11/18 23:40 11/12/18 04:00 11/12/18 08:51 Temperature 99.2 F 98.9 F 98.8 F Pulse Rate 58 L 98 H 100 H Respiratory Rate 18 16 14 Blood Pressure 93/58 L 84/39 L 103/53 L Pulse Oximetry 92 L 93 L 90 L Intake & Output 11/11/18 11/12/18 11/12/18 18:59 06:59 18:59 Intake Total 1999 1110 / 1110 Output Total 950 / 950 Balance 1999 160 / 160 Weight 74.843 kg 74.6 kg Intake: IV 1999 1110 / 1110 Calcium Gluconate Inj 1 GM In 110 / 110 D5W Inj 100 ML @ 110 mls/hr IV. SIG ONCE ONE Rx#:[id number] NS Inj 1,000 ML @ 2000 mls/hr 1999 1000 / 1000 IV.SIG Q30M KRISTYN Rx#:[id number] Output: Urine 950 / 950 Other: Weight On Admission 74.6 kg Narrative: GENERAL: NAD, A&Ox3 HEAD: Normocephalic. NECK: Supple, trachea midline. No lymphadenopathy. EYES: No scleral icterus. No injection or drainage. CARDIOVASCULAR: Regular rate and rhythm without murmurs, gallops, or rubs. RESPIRATORY: Breath sounds equal bilaterally. No accessory muscle use. GASTROINTESTINAL: Abdomen soft, non-tender, nondistended. MUSCULOSKELETAL: No cyanosis, or edema. SKIN: Warm and dry. NEURO: No focal neurological deficits. Results Labs CBC & Chem 7: 11/12/18 04:08 11/12/18 04:06 Imaging Imaging: Impressions Chest X-Ray 11/11/18 12:55 CONCLUSION: The lungs are clear. Assessment and Plan (1) Adjustment disorder: Code(s): F43.20 - Adjustment disorder, unspecified Status: Acute (2) Polysubstance dependence: Code(s): F19.20 - Other psychoactive substance dependence, uncomplicated Status: Acute Plan 38-year-old male admitted secondary to acute kidney injury, rhabdomyolysis, and heroin/cocaine overdose. Patient under Sahu act for suicidal ideations and attempt. Creatine kinase levels have increased today. Continue IV hydration. Continue monitoring renal function. Continue monitoring creatine kinase. Patient can be medically cleared after rhabdomyolysis improves. Acute kidney injury Rhabdomyolysis Hyperkalemia Etiology may be related to dehydration from lack of fluid intake when patient was abusing drugs IV hydration Repeat labs in a.m. Polysubstance abuse Transaminitis Patient counseled to avoid abusing drugs Follow LFTs Suicidal ideations Suicide attempt Patient under Sahu act Transition to psychiatry care after patient medically stable and clear. Psychiatry consulted Patient to be supervised DVT prophylaxis SCDs Progress Note: Quality VTE Deep Vein Thrombosis/Pulmonary Embolism Present on Admission: No _ (1) Adjustment disorder Qualifiers: Adjustment disorder type: with depressed mood Qualified Code(s): F43.21 - Adjustment disorder with depressed mood
[2018-11-13] MEDS: Sod Chloride 0.9% Inj 1,000 ML IV.CONT SCH ×2 (00:10→10:35)
[2018-11-13 07:18] LABS: Baso % (Auto) 0.3 % (0.0-2.0); Eos % (Auto) 0.2 % (0.0-4.0); Hematocrit 40.8 % (39.0-51.0); Lymph % (Auto) 24.4 % (9.0-44.0); Mean Corpuscular HGB Conc 34.3 % (32.0-36.0); Mean Corpuscular Hemoglobin 33.9 pg (27.0-34.0); Mean Corpuscular Volume 98.9 fL (80.0-100.0); Mean Platelet Volume 8.8 fL (7.0-11.0); Mono # (Auto) 0.6 th/mm3 (0.0-0.9); Mono % (Auto) 6.9 % (0.0-8.0); Neut # (Auto) 5.5 th/mm3 (1.8-7.7); Neut % (Auto) 68.2 % (16.0-70.0); Platelet Count 125 th/mm3 (150-450); Red Blood Count 4.12 mil/mm3 (4.50-5.90); Red Cell Distribution Width 12.9 % (11.6-17.2); White Blood Count 8.1 th/mm3 (4.0-11.0)
[2018-11-13 07:54] LABS: Alanine Aminotransferase 151 U/L (12-78); Albumin 2.8 g/dL (3.4-5.0); Anion Gap 6 meq/L (5-15); Aspartate Aminotransferase 349 U/L (15-37); Blood Urea Nitrogen 17 mg/dL (7-18); Calcium 7.7 mg/dL (8.5-10.1); Carbon Dioxide 27.4 meq/L (21.0-32.0); Chloride 108 meq/L (98-107); Glomerular Filtration Rate Greater Than 89 mL/min (>89); Glucose,Random 83 mg/dL (74-106); Potassium 4.1 meq/L (3.5-5.1); Sodium 141 meq/L (136-145)
[2018-11-13 08:22] LABS: Alkaline Phosphatase 55 U/L (45-117); Creatine Kinase 7411 U/L (39-308); Total Protein 5.5 g/dL (6.4-8.2)
[2018-11-13 08:32] VITALS: BP 112/67; PULSE 51; RESP 20; TEMP 98.6; O2SAT 96
[2018-11-13 08:42] LABS: CKMB Percent 0.2 % (0.0-4.0); Creatine Kinase MB 14.1 ng/mL (0.5-3.6)
--- NOTE | 2018-11-13 10:03 | P.DS ---
DS: Providers Date of admission: 11/12/18 09:18 Primary care physician: UNKNOWN Consults: 11/11/18 17:06 Consult to Psychiatry Routine Consulting Provider: Liam Parekh Reason for Consultation: Suicidal Ideations and Attempt, under Sahu Act. Spoke with:: DONNA Date Notified:: 11/11/18 Time Notified:: 18:50 Ordering Provider: BLU Brief History from admission: Mr. Saez is a 38-year-old male. He is brought in by the police today after being found on his bathroom floor. Patient reportedly texted his girlfriend earlier today informing her that he was going to commit suicide. He was found with needles on his bathroom floor unconscious with heroin and crack cocaine on the scene. Narcan was administered in the field and the patient became responsive and expressed thirst. Patient has been placed under Sahu act by the police. Thus far he has not been cooperative with answering questions. He will not provide an interview with me. DS: Diagnosis Discharge Diagnosis (1) Adjustment disorder: Status: Acute (2) Polysubstance dependence: Status: Acute DS: Summary Mr. Saez is a 38-year-old male. He was admitted secondary to suicidal ideations/attempt with overdose of cocaine and heroin. He was found to have rhabdomyolysis with acute kidney injury. Hydration has been provided. At the 24-hour marlyn he had worsening of his rhabdomyolysis. With further hydration the patient has evidence of progressive resolution of his rhabdomyolysis. Renal function has returned to normal. Patient's mental state has returned to baseline. He is medically stable for discharge today. He will discharge to psychiatry care for further psychiatric treatment. Time Spent with Patient Total time spent providing and/or coordinating discharge services: Less than 30 minutes Quality: VTE Deep Vein Thrombosis/Pulmonary Embolism Present on Admission: No Results Labs on day of discharge: Labs from last 24 hours 11/13/18 11/13/18 06:12 06:12 WBC 8.1 RBC 4.12 L Hgb 14.0 Hct 40.8 MCV 98.9 MCH 33.9 MCHC 34.3 RDW 12.9 Plt Count 125 L MPV 8.8 Neut % (Auto) 68.2 Lymph % (Auto) 24.4 Howard % (Auto) 6.9 Eos % (Auto) 0.2 Baso % (Auto) 0.3 Neut # (Auto) 5.5 Lymph # (Auto) 2.0 Howard # (Auto) 0.6 Eos # (Auto) 0.0 Baso # (Auto) 0.0 WBC Differential . Differential Comment Auto diff final Sodium 141 Potassium 4.1 Chloride 108 H Carbon Dioxide 27.4 Anion Gap 6 BUN 17 Creatinine 0.88 Estimated GFR Greater than 89 Random Glucose 83 Calcium 7.7 L Total Bilirubin 0.3 AST 349 H ALT 151 H Alkaline Phosphatase 55 Total Creatine Kinase 7411 H CK-MB (CK-2) 14.1 H CK-MB (CK-2) % 0.2 Total Protein 5.5 L Albumin 2.8 L Impressions ITS Impressions Chest X-Ray 11/11/18 12:55 CONCLUSION: The lungs are clear. Discharge Plan Discharge Disposition Patient Disposition: [facility] Disc To [facility] Discharge Condition Condition: Stable Discharge Order Discharge Orders: Discharge Order (Routine); Ordered 11/13/18 Ordered By: Surendra Quesada Discharge Details Anticipated Discharge Date: 11/13/18 Physicians Team Primary Care Provider: UNKNOWN, Attending Provider: Surendra Quesada Other Providers: Liam Parekh Rxs /Orders / Referrals /Forms Prescriptions: Continue Unable to Obtain Home Meds RF: 0 Referrals: UNKNOWN, [Primary Care Provider] - See Instructions Status ED Status: Left Department
== END 2018-11-13 11:07 | DRG 918 ==
LOC: NEDH 12:42 → NEPE 12:42 → NEPFCDU 18:48
PROVIDERS: ADMIT Hospitalist; ATTEND Hospitalist
DX: F43.20 Adjustment disorder, unspecified; F19.20 Other psychoactive substance dependence, uncomplicated; T40.5X2A Poisoning by cocaine, intentional self-harm, initial encounter; T40.1X2A Poisoning by heroin, intentional self-harm, initial encounter; E87.5 Hyperkalemia; M62.82 Rhabdomyolysis; R74.0 Nonspecific elevation of levels of transaminase and lactic acid dehydrogenase [LDH]; T68.XXXA Hypothermia, initial encounter; N17.9 Acute kidney failure, unspecified; Y92.89 Other specified places as the place of occurrence of the external cause
CPT/HCPCS: 71010; 71045; 80053; 80307; 82550; 82552; 83735; 85025; 85610; 93005; J0610; J2405; J7030